=== PATIENT | male | born 1945 | race Caucasian/White ===

== ENCOUNTER 2020-02-28 17:46 | Emergency (ER) | payer MEDICARE ==
[~2020-02-28] VITALS: Ht 175.3 cm; Wt 68.1 kg
[2020-02-28 18:32] VITALS: BP 144/95
--- NOTE | 2020-02-28 19:20 | PHYS DOC ---
Past History Past Medical History: No Pertinent History Past Surgical History: No Surgical History Alcohol Use: None General Adult EDM: Chief Complaint: UPPER EXTREMITY INJURY HPI: HPI: ".. I was..cutting down tree.. and it pulled down another limb.. and it hit this Lt arm.. "".. skinned me up pretty good.. ".. 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 and I would not have come in.. but this probably needs a better cleaning.." Patient is a 74 year old male who presents with above hx and extensive abrasion to Lt. forearm. Patient pt. Lt hand dominate. Patient distal neurovascular is equal to right hand. Patient abrasions are completely gone forearm. Patient thinks his tetanus is less than 10 years if not 5 years. Patient denies any history of immunosuppression. No recent travel. No other injuries reported. Review of Systems: Review of Systems: Constitutional: Denies fever or chills Eyes: Denies change in visual acuity HENT: Denies nasal congestion or sore throat Respiratory: Denies cough or shortness of breath Cardiovascular: Denies chest pain or edema GI: Denies abdominal pain, nausea, vomiting, bloody stools or diarrhea : Denies dysuria Musculoskeletal: Complains of left forearm injury contusion/abrasion Integument: Denies rash Neurologic: Denies headache, focal weakness or sensory changes Endocrine: Denies polyuria or polydipsia Lymphatic: Denies swollen glands Psychiatric: Denies depression or anxiety Heart Score: Risk Factors: Risk Factors: DM, Current or recent (<one month) smoker, HTN, HLP, family history of CAD, obesity. Risk Scores: Score 0 - 3: 2.5% MACE over next 6 weeks - Discharge Home Score 4 - 6: 20.3% MACE over next 6 weeks - Admit for Clinical Observation Score 7 - 10: 72.7% MACE over next 6 weeks - Early Invasive Strategies Family History: Family History: Noncontributory Allergies: Allergies: Allergies Coded Allergies Type Severity Reaction Last Updated Verified Penicillins Allergy Intermediate 02/28/20 Yes Physical Exam: PE: Constitutional: Moderate acute distress, non-toxic appearance. [] HENT: Normocephalic, atraumatic, bilateral external ears normal, oropharynx moist, no oral exudates, nose normal. [] Eyes: PERRLA, EOMI, conjunctiva normal, no discharge. [] Neck: Normal range of motion, no tenderness, supple, no stridor. [] Cardiovascular:Heart rate regular rhythm, no murmur [] Lungs & Thorax: Bilateral breath sounds equal at apex on auscultation [] Abdomen: Bowel sounds normal, soft, no tenderness, no masses, no pulsatile masses. [] Skin: Warm, dry, no erythema, no rash. Extensive abrasion and contusion left forearm Back: No tenderness, no CVA tenderness. [] Extremities: No tenderness, no cyanosis, no clubbing, ROM intact, left forearm edema. [] Neurologic: Alert and oriented X 3, normal motor function, normal sensory function, no focal deficits noted. [] DTRs +2 patella and brachial. Psychologic: Affect anxious, judgement normal, mood normal. [] Current Patient Data: Vital Signs: Vital Signs Date Time Temp Pulse Resp B/P (MAP) Pulse Ox O2 Delivery O2 Flow Rate FiO2 02/28/20 18:32 98.2 89 16 144/95 (111) 99 Room Air EKG: EKG: My interpretation EKG shows a A. fib a flutter. With a ventricular rate of 82. There is a strain pattern. But no findings of acute STEMI of contralateral changes. [] Radiology/Procedures: Radiology/Procedures: [][place] [address] IMAGING REPORT Signed PATIENT: SELENE GOMEZACCOUNT: [id number] : 1945 LOCATION: ER AGE: 74 SEX: M EXAM STATUS: PRE ER ORD. PHYSICIAN: CAMILO JORGE MD REASON: after cleaning for foreign body PROCEDURE: FOREARM LEFT FOREARM LEFT History: Possible foreign body Comparison: None. Findings: 2 views of the left forearm are submitted. No acute fracture or dislocation is identified. No convincing radiopaque foreign body is identified. Impression: 1. No convincing radiopaque foreign body is identified. Electronically signed by: Chase Peralta MD (02/28/2020 7:42 PM) [facility] DICTATED AND SIGNED BY: CHASE PERALTA MD DATE: 02/28/201941 CC: CAMILO JORGE MD; NON,STAFF ~ Course & Med Decision Making: Course & Med Decision Making Pertinent Labs and Imaging studies reviewed. (See chart for details) Wound care-left forearm wounds described and dressed with antibiotic ointment. Patient follow-up primary care. Patient use Polysporin 4 times a day. Patient take Tylenol and ibuprofen for pain. Patient follow-up with primary care. Patient return if any concerns. Pt. Tetanus up dated. Impression: 1. Lt Forearm Contusion and Abrasion [] Dragon Disclaimer: Asa Disclaimer: This electronic medical record was generated, in whole or in part, using a voice recognition dictation system. Departure Departure: Disposition: 01 DC HOME SELF CARE/HOMELESS Condition: STABLE Referrals: NON,STAFF (PCP) CAMILO JORGE MD Feb 28, 2020 19:19
[2020-02-28] MEDS ORDERED: BACITRACIN ZINC TOPICAL OINT PACKET. TP ONE (19:30)
[2020-02-28] MEDS ORDERED: HYDROcodon/IBUPROFEN 7.5/200MG 1 TAB TABLET PO ONE (19:30)
--- NOTE | 2020-02-28 19:44 | RAD ---
FOREARM LEFT History: Possible foreign body Comparison: None. Findings: 2 views of the left forearm are submitted. No acute fracture or dislocation is identified. No convincing radiopaque foreign body is identified. Impression: 1. No convincing radiopaque foreign body is identified. Electronically signed by: Martir Puente MD (02/28/2020 7:42 PM) [facility]
[2020-02-28] MEDS ORDERED: TETANUS AND DIPHTHERIA TOX/PF 0.5 ML VIAL. VAX IM ONE (19:45)
[2020-02-28] MEDS ORDERED: DIPH,PERTUSS(ACELL),TET VAC/PF 0.5 ML SYRINGE. VAX IM ONE (20:00)
== END 2020-02-28 20:05 | disposition home or self-care (01) ==
LOC: ER 17:46
DX: S50.12XA Contusion of left forearm, initial encounter (principal); Z88.0 Allergy status to penicillin; W22.8XXA Striking against or struck by other objects, initial encounter; Y93.89 Activity, other specified; Y92.89 Other specified places as the place of occurrence of the external cause; Y99.8 Other external cause status
CPT/HCPCS: 73090; 90471; 90715; 99283

== ENCOUNTER 2020-03-21 07:35 | Emergency (ER) | payer MEDICARE ==
[~2020-03-21] VITALS: Ht 175.3 cm; Wt 76.1 kg
[2020-03-21] MEDS ORDERED: SUCCINYLCHOLINE 200 MG/10 ML VIAL. ONE ×2 (07:56→08:00)
[2020-03-21] MEDS ORDERED: ETOMIDATE 40 MG/20 ML VIAL. ONE (08:00)
[2020-03-21] MEDS ORDERED: PROPOFOL 100 ML IV ONE (08:09)
--- NOTE | 2020-03-21 08:10 | PHYS DOC ---
Past History Past Medical History: No Pertinent History Past Surgical History: No Surgical History Alcohol Use: None Adult General Chief Complaint Chief Complaint: ALTERED MENTAL STATUS HPI HPI Patient is a 75-year-old male who presents via EMS for seizure-like activity. Per , patient awoke from sleep with left upper extremity abnormalities for which she reported looked like a seizure. This lasted less than 3 minutes and patient then became arousable and conversant. Patient reported he did not feel good and then shortly after that time, went into continued abnormal extension of his left upper extremity. was concerned for potential seizure so she called EMS. On arrival, GCS 7, patient hemodynamically stable otherwise. Patient rushed urgently to our facility for evaluation. On arrival, patient's eyes open to pain, patient had this cerebral rigidity of left upper extremity, and was nonverbal. Per , patient has outpatient PCP for which he sees annually. Last seen approximately 1 year ago. Is on no medications, no blood thinners, no remarkable medical diagnoses at this time. reports he is a full code. No recent COVID-19 contact or febrile illness, only change in health recently was x1 week course of penicillin antibiotic for a superficial left upper extremity wound, patient took this approximately 3 weeks ago, he took all medications to completion Review of Systems Review of Systems Unobtainable at this time Current Medications Current Medications Current Medications Medications (Trade) Dose Ordered Sig/Marshal Start Time Stop Time Status Last Admin Dose Admin Lorazepam (Ativan Inj) 2 mg 1X ONCE 03/21/20 08:00 03/21/20 08:01 UNV Allergies Allergies Allergies Coded Allergies Type Severity Reaction Last Updated Verified Penicillins Allergy Intermediate 02/28/20 Yes Physical Exam Physical Exam Constitutional: Pt arrives with a GCS of 4, eyes open to pain, cerebral rigidity of left upper extremity, and nonverbal. Otherwise no obvious defects visually, no signs of trauma HENT: Head: Normocephalic and atraumatic. Mouth/Throat: Oropharynx is clear and dry, poor dentition No hematomas or lacerations or abrasions to face or scalp OP clear, no blood, no malocclusion, dentition intact Nares clear, no nasal septal hematoma TMs clear, no hemotympanum Midface stable Eyes: Conjunctivae normal. Pupils are unequal with left being greater than right, 4 mm versus 3 mm. Both are reactive to light at this time Neck: C-spine midline without any step-offs Cardiovascular: Normal rate, regular rhythm and normal heart sounds. Pulmonary/Chest: Effort normal and breath sounds normal. No respiratory distress. No wheezes. CTA bilaterally Abdominal: Soft. Bowel sounds are normal. Pt exhibits no distension. Musculoskeletal: No bony tenderness to extremities, no deformities Chest wall stable Pelvis stable and non-tender No vertebral stepoffs Skin: Skin is warm and dry. No abrasions, no lacerations Psychiatric: Unable to accurately assess Nursing note and vitals reviewed. Current Patient Data Lab Results Laboratory Tests Test 03/21/20 07:40 03/21/20 07:41 03/21/20 08:30 White Blood Count 12.4 x10^3/uL (4.0-11.0) Red Blood Count 4.95 x10^6/uL (4.30-5.70) Hemoglobin 14.3 g/dL (13.0-17.5) Hematocrit 44.4 % (39.0-53.0) Mean Corpuscular Volume 90 fL (79-100) Mean Corpuscular Hemoglobin 29 pg (25-35) Mean Corpuscular Hemoglobin Concent 32 g/dL (31-37) Red Cell Distribution Width 13.6 % (11.5-14.5) Platelet Count 253 x10^3/uL (140-400) Neutrophils (%) (Auto) 59 % (31-73) Lymphocytes (%) (Auto) 34 % (24-48) Monocytes (%) (Auto) 5 % (0-9) Eosinophils (%) (Auto) 3 % (0-3) Basophils (%) (Auto) 1 % (0-3) Neutrophils # (Auto) 7.3 x10^3uL (1.8-7.7) Lymphocytes # (Auto) 4.2 x10^3/uL (1.0-4.8) Monocytes # (Auto) 0.6 x10^3/uL (0.0-1.1) Eosinophils # (Auto) 0.4 x10^3/uL (0.0-0.7) Basophils # (Auto) 0.1 x10^3/uL (0.0-0.2) Sodium Level 141 mmol/L (136-145) Potassium Level 3.9 mmol/L (3.5-5.1) Chloride Level 104 mmol/L (98-107) Carbon Dioxide Level 23 mmol/L (21-32) Anion Gap 14 (6-14) Blood Urea Nitrogen 14 mg/dL (8-26) Creatinine 1.3 mg/dL (0.7-1.3) Estimated GFR (Cockcroft-Gault) 54.1 BUN/Creatinine Ratio 11 (6-20) Glucose Level 201 mg/dL (70-99) Lactic Acid Level 3.7 mmol/L (0.4-2.0) Calcium Level 9.3 mg/dL (8.5-10.1) Total Bilirubin 0.5 mg/dL (0.2-1.0) Aspartate Amino Transf (AST/SGOT) 26 U/L (15-37) Alanine Aminotransferase (ALT/SGPT) 14 U/L (16-63) Alkaline Phosphatase 97 U/L (46-116) Creatine Kinase 112 U/L (39-308) Total Protein 7.3 g/dL (6.4-8.2) Albumin 3.7 g/dL (3.4-5.0) Albumin/Globulin Ratio 1.0 (1.0-1.7) Ethyl Alcohol Level < 10 mg/dL (0-10) Glucose (Fingerstick) 204 mg/dL (70-99) Blood Gas pH 7.36 (7.35-7.46) Blood Gas PCO2 48 mmHg (35-46) Blood Gas PO2 340 mmHg (71-100) Blood Gas HCO3 27 mmol/L (21-28) Arterial Bld O2 Saturation (Calc) 100 % (92-99) FiO2 100 % EKG EKG EKG ordered and interpreted by myself at 0855 hrs. as sinus rhythm at 94 bpm, unremarkable intervals, no axis deviation, no fascicular blocks, no STEMI Radiology/Procedures Radiology/Procedures PROCEDURE: PORTABLE CHEST 1V PORTABLE CHEST 1V INDICATION: INTUBATION / Spl. Instructions: / History: . COMPARISON STUDY: None. FINDINGS: Life Support Devices: Endotracheal tube at the level of thoracic inlet, approximately 7 cm above the kosta. Lungs: Normal lung volume. No focal airspace disease. Normal pulmonary vasculature. Pleura: No pleural effusion or pneumothorax. Heart and Mediastinum: Normal cardiac mediastinal silhouette. Atherosclerosis of the thoracic aorta. IMPRESSION: 1.Endotracheal tube at the level of thoracic inlet, approximately 7 cm above the kosta. Consider advancement for optimal positioning. 2. No consolidation Electronically signed by: Martir Dillard MD (03/21/2020 8:28 AM) [id number] PROCEDURE: CT HEAD WO CONTRAST CT head without contrast PQRS statement: CT scans at this facility use dose reduction including either automated exposure control, iterative reconstructions, and /or weight based radiation dosing via mA and kV modification when appropriate to reduce radiation dose to as low as reasonably achievable. HISTORY: First-time seizure. FINDINGS: Extensive subarachnoid hemorrhage at the basilar cisterns with extension into the anterior interhemispheric fissure as well as extensively throughout the bilateral anterior frontal lobe sulci, right sylvian fissure and right temporal lobe sulci. There is a extra-axial hemorrhage which could be subarachnoid or subdural overlying the right lateral frontal and temporal surface. No hydrocephalus. No cerebellar tonsil herniation. Indistinct hypodensity at the left cerebellum image 11 at a region of extensive streak artifact most likely artifact given similar lesser hypodensity of the left occipital lobe at the artifact although an underlying infarct or mass lesion cannot be excluded. Orbits, mastoids and bones are unremarkable. IMPRESSION: 1. Extensive subarachnoid hemorrhage as described above. There is also right lateral frontotemporal extra-axial subdural hemorrhage exerting some mass effect upon the right hemisphere resulting in 6 mm of midline shift. 2. Indistinct hypodensities at the left cerebellum and left occipital lobe most likely related to extensive streak artifact from the skull base at this location although underlying masses or infarcts cannot be excluded. Heart Score HEART Score for Chest Pain: HEART Score for Chest Pain Response (Comments) Value History Slighlty/Non-Suspicious 0 ECG Normal 0 Age > 65 2 Risk Factors No Risk Factors 0 Troponin < Normal Limit 0 Total 2 Risk Factors: Risk Factors: DM, Current or recent (<one month) smoker, HTN, HLP, family history of CAD, obesity. Risk Scores: Risk Factors: DM, Current or recent (<one month) smoker, HTN, HLP, family history of CAD, obesity. Course & Med Decision Making Course & Med Decision Making Pertinent Labs and Imaging studies reviewed. (See chart for details) Patient presented with GCS of 4. Initial history and consent obtained from to protect patient's airway. Patient subsequently intubated without issues Comprehensive physical examination performed, high concern for potential intracranial abnormality due to left upper extremity decerebrate/abnormal extensor posturing. CT head confirmed findings of subarachnoid hemorrhage with right subdural bleed and subsequent 6 mm midline shift I stressed severity of situation to and daughter who were present. I recommended immediate life flight to higher acuity of care, they were amenable. [facility] was contacted, I discussed the case with Dr. Whyte, neurosurgeon, who agreed need for transfer under his care Patient stabilized with definitive airway, remains hemodynamically stable on ventilator with current propofol drip and 2 large-bore IVs prior to helicopter transportation to [facility] for higher acuity of care Patient's and daughter were updated on situation and plan of care, they were amenable, all questions and concerns addressed prior to transportation Critical Care Time This patient required critical care. Due to the fact that the patient required a significant amount of one on one physician - patient contact time, ordering and review of studies, arranging urgent treatment with development of a management plan, evaluation of patients response to treatment with frequent reassessments, and discussions with other providers this patient required critical care time in excess of 30 minutes. Critical care time was indicated due to the inherent instability and/or potential for instability in this patient. The critical care time that is allocated to this patient is above and beyond any time spent on any other billable procedures performed on this patient. Dragon Disclaimer Dragon Disclaimer This electronic medical record was generated, in whole or in part, using a voice recognition dictation system. Intubation Procedure Intub Indication: GCS less than 8 Consent: Verbally obtained from Medications Used: 30 etomidate, 100 succinylcholine Procedure: The patient was placed in the supine position. Intubation was performed by myself, initial attempts were made using a MAC 3 blade but poor visualization of vocal cords resulted in patient being bagged and glidoscope 3 blade being used. An 8.0 endotracheal tube was seen passing through the vocal cords in satisfactory condition on first attempt. Initial confirmation of placement included positive CO2 change, bilateral chest rise and sounds on auscultation. A chest x-ray to verify correct placement of the tube with recommendations to advance approximately 7 cm. This was performed prior to helicopter transportation without any reported issues. The patient tolerated the procedure well without any reportable complications. Departure Departure: Impression: Primary Impression: Subarachnoid hemorrhage Additional Impressions: Subdural bleeding Midline shift of brain Full code status Disposition: 02 DC/TRF OTHER SHORT TERM HOS ([facility]) Admitting Physician: Other (DR WHYTE) Condition: CRITICAL Referrals: MURTAZA GAMEZ MD (PCP) Problem Qualifiers JOSE EDUARDO LOMAS DO Mar 21, 2020 08:10
[2020-03-21 08:11] LABS: BASO # 0.1 x10^3/uL (0.0-0.2); BASO % 1 % (0-3); EOS # 0.4 x10^3/uL (0.0-0.7); EOS % 3 % (0-3); HEMATOCRIT 44.4 % (39.0-53.0); HEMOGLOBIN 14.3 g/dL (13.0-17.5); LYMPH # 4.2 x10^3/uL (1.0-4.8); LYMPH % 34 % (24-48); MEAN CORPUSCULAR HEMOGLOBIN 29 pg (25-35); MEAN CORPUSCULAR HGB CONC 32 g/dL (31-37); MEAN CORPUSCULAR VOLUME 90 fL (79-100); MONO # 0.6 x10^3/uL (0.0-1.1); MONO % 5 % (0-9); NEUT # 7.3 x10^3uL (1.8-7.7); NEUT % 59 % (31-73); PLATELET COUNT 253 x10^3/uL (140-400); RED BLOOD COUNT 4.95 x10^6/uL (4.30-5.70); RED CELL DISTRIBUTION WIDTH 13.6 % (11.5-14.5); WHITE BLOOD COUNT 12.4 x10^3/uL (4.0-11.0)
[2020-03-21 08:12] LABS: CALCIUM 9.3 mg/dL (8.5-10.1); CREATININE 1.3 mg/dL (0.7-1.3); GFR 54.1; POTASSIUM 3.9 mmol/L (3.5-5.1)
[2020-03-21] MEDS ORDERED: PROPOFOL 100 ML IV PRN (08:15)
[2020-03-21 08:18] LABS: ALBUMIN 3.7 g/dL (3.4-5.0); TOTAL BILIRUBIN 0.5 mg/dL (0.2-1.0); TOTAL PROTEIN 7.3 g/dL (6.4-8.2)
--- NOTE | 2020-03-21 08:32 | RAD ---
PORTABLE CHEST 1V INDICATION: INTUBATION / Spl. Instructions: / History: . COMPARISON STUDY: None. FINDINGS: Life Support Devices: Endotracheal tube at the level of thoracic inlet, approximately 7 cm above the kosta. Lungs: Normal lung volume. No focal airspace disease. Normal pulmonary vasculature. Pleura: No pleural effusion or pneumothorax. Heart and Mediastinum: Normal cardiac mediastinal silhouette. Atherosclerosis of the thoracic aorta. IMPRESSION: 1.Endotracheal tube at the level of thoracic inlet, approximately 7 cm above the kosta. Consider advancement for optimal positioning. 2. No consolidation Electronically signed by: Martir Dillard MD (03/21/2020 8:28 AM) [id number]
[2020-03-21 09:03] LABS: BGAS PH 7.36 (7.35-7.46)
--- NOTE | 2020-03-21 09:08 | RAD ---
CT head without contrast PQRS statement: CT scans at this facility use dose reduction including either automated exposure control, iterative reconstructions, and /or weight based radiation dosing via mA and kV modification when appropriate to reduce radiation dose to as low as reasonably achievable. HISTORY: First-time seizure. FINDINGS: Extensive subarachnoid hemorrhage at the basilar cisterns with extension into the anterior interhemispheric fissure as well as extensively throughout the bilateral anterior frontal lobe sulci, right sylvian fissure and right temporal lobe sulci. There is a extra-axial hemorrhage which could be subarachnoid or subdural overlying the right lateral frontal and temporal surface. No hydrocephalus. No cerebellar tonsil herniation. Indistinct hypodensity at the left cerebellum image 11 at a region of extensive streak artifact most likely artifact given similar lesser hypodensity of the left occipital lobe at the artifact although an underlying infarct or mass lesion cannot be excluded. Orbits, mastoids and bones are unremarkable. IMPRESSION: 1. Extensive subarachnoid hemorrhage as described above. There is also right lateral frontotemporal extra-axial subdural hemorrhage exerting some mass effect upon the right hemisphere resulting in 6 mm of midline shift. 2. Indistinct hypodensities at the left cerebellum and left occipital lobe most likely related to extensive streak artifact from the skull base at this location although underlying masses or infarcts cannot be excluded. FOR INTERNAL CODING PURPOSES Critical result: Findings discussed with JOSE EDUARDO LOMAS at 03/21/2020 8:59 AM. RESULT CODE: (C) Electronically signed by: Josh Larson MD (03/21/2020 9:04 AM) [id number]
--- NOTE | 2020-03-21 09:24 | EKG ---
[facility] ED [facility] [address] [place] [id number] Test Date: 2020-03-21 Test Time: 08:53:42 Pat Name: SELENE GOMEZ Department: Room: Gender: M Thread Winder: : 1945 Requested By: JOSE EDUARDO LOMAS Order Number: [id number] Reading MD: Darrian Rausch Measurements Intervals [place] Rate: 94 P: 51 FL: 162 QRS: 69 QRSD: 96 T: 1 QT: 362 QTc: 458 Interpretive Statements SINUS RHYTHM Electronically Signed On 03-24-2020 10:54:13 [employer] by Darrian Rausch
[2020-03-21 09:30] LABS: AMPHETAMINE/METHAMPHETAMINE NEG (NEG); BARBITURATES NEG (NEG); BENZODIAZEPINES NEG (NEG); CANNABINOIDS NEG (NEG); COCAINE NEG (NEG); METHADONE NEG (NEG); OPIATES NEG (NEG); PHENCYCLIDINE NEG (NEG)
[2020-03-21 09:35] LABS: BACTERIA,URINE FEW /HPF (0-FEW); BILIRUBIN,URINE NEG (NEG); CLARITY,URINE HAZY; COLOR,URINE YELLOW; GLUCOSE,URINE NEG (NEG); NITRITE,URINE NEG (NEG); SQUAMOUS EPITHELIAL CELL,UR OCC /LPF; UROBILINOGEN,URINE 0.2 mg/dL (0.2 mg/dL)
[2020-03-21 10:10] VITALS: BP 92/62
--- NOTE | 2020-03-21 10:13 | RAD ---
AP chest x-ray HISTORY: Nasogastric intubation. COMPARISON: Chest x-ray March 21, 2020. FINDINGS: Nasogastric tube is in place tip left upper quadrant abdomen radiograph region gastric fundus. Heart size stable. Lung apices outside [id number]. No pneumothorax, pulmonary opacities or pleural effusions. Bones are unremarkable. IMPRESSION: Nasogastric intubation. No acute process in the chest evident. Electronically signed by: Josh Larson MD (03/21/2020 10:10 AM) [id number]
== END 2020-03-21 10:38 | disposition short-term general hospital (02) ==
LOC: ER 07:35
DX: I60.9 Nontraumatic subarachnoid hemorrhage, unspecified (principal); I62.00 Nontraumatic subdural hemorrhage, unspecified; G93.89 Other specified disorders of brain; Z88.0 Allergy status to penicillin
CPT/HCPCS: 31500; 36415; 51702; 70450; 71045; 80053; 80307; 81001; 82550; 82803; 82947; 83605; 84146; 85025; 85610; 85730; 87040; 87086; 93005; 96374; 99291; G0480; J0330; J2060; J2704; 99285-25